=== PATIENT | male | born 1995 | race Caucasian/White ===

== ENCOUNTER 2018-04-23 12:54 | Emergency (ER) | payer SELFPAY ==
[2018-04-23 12:59] VITALS: BP 153/98
--- NOTE | 2018-04-23 13:02 | ER Report ---
History and Physical Time Seen By MD: 13:02 HPI/ROS CHIEF COMPLAINT: Headache HISTORY OF PRESENT ILLNESS: This is a 23-year-old male who presents to the emergency department for a headache. Patient was seen and evaluated at the [facility] today subsequently sent to the ED. Patient states over the last 2 weeks he's had blurred vision bilaterally, with last several days he's had a headache that has increased in intensity, has caused some nausea couple of episodes of vomiting. 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 Does have photophobia. Patient states he's also had some diarrhea recently, no blood in the emesis or diarrhea. No fevers or chest pain. No rashes. REVIEW OF SYSTEMS: Constitutional: No fever, no chills. Eyes: As above. ENT: No sore throat. Cardiovascular: No chest pain, no palpitations. Respiratory: No cough, no shortness of breath. Gastrointestinal: As above. Genitourinary: No hematuria. Musculoskeletal: No back pain. Skin: No rashes. Neurological: As above. Allergies: Coded Allergies: No Known Drug Allergies (Unverified , 04/23/18) Home Meds No Active Prescriptions or Reported Meds Past Medical/Surgical History The patient has a past medical and surgical history of wearing glasses. Reviewed Nurses Notes: Yes Constitutional Vital Sign - Last 24 Hours 04/23/18 12:59 Temp 97.9 Pulse 74 Resp 18 B/P (MAP) 153/98 Pulse Ox 96 O2 Delivery Room Air Physical Exam General Appearance: The patient is alert, has no immediate need for airway protection and no signs of toxicity. Eyes: Pupils equal and round no pallor or injection. EOMs intact. OD 20/40, OS 20/40, both eyes 20/30. ENT, Mouth: Mucous membranes are moist. Respiratory: There are no retractions, lungs are clear to auscultation. Cardiovascular: Regular rate and rhythm, no murmurs, clicks or rubs. Gastrointestinal: Abdomen is soft and non tender, no masses, bowel sounds normal. Neurological: Alert and oriented 4. Moving all extremities. Following all commands. No focal neuro deficits. Skin: Warm and dry, no rashes. Musculoskeletal: Neck is supple non tender. Extremities are nontender, nonswollen and have full range of motion. DIFFERENTIAL DIAGNOSIS: After history and physical exam differential diagnosis was considered for headache including but not limited to subarachnoid hemorrhage, migraine headache, tension headache and infectious causes such as meningitis, pharyngitis and sinusitis. Medical Decision Making Data Points Result Diagram: 04/23/18 1130 04/23/18 1130 Laboratory Hematology Test 04/23/18 11:30 Red Blood Count 5.48 M/uL (4.00-5.60) Mean Corpuscular Volume 91.1 fL (80.0-96.0) Mean Corpuscular Hemoglobin 30.9 pg (26.0-33.0) Mean Corpuscular Hemoglobin Concent 34.0 g/dL (32.0-36.0) Red Cell Distribution Width 13.4 % (11.5-14.5) Mean Platelet Volume 8.3 fL (7.2-11.1) Neutrophils (%) (Auto) 73.8 % (39.4-72.5) Lymphocytes (%) (Auto) 18.5 % (17.6-49.6) Monocytes (%) (Auto) 7.0 % (4.1-12.4) Eosinophils (%) (Auto) 0.1 % (0.4-6.7) Basophils (%) (Auto) 0.6 % (0.3-1.4) Nucleated RBC Relative Count (auto) 0.1 /100WBC Neutrophils # (Auto) 5.0 K/uL (2.0-7.4) Lymphocytes # (Auto) 1.2 K/uL (1.3-3.6) Monocytes # (Auto) 0.5 K/uL (0.3-1.0) Eosinophils # (Auto) 0.0 K/uL (0.0-0.5) Basophils # (Auto) 0.0 K/uL (0.0-0.1) Nucleated RBC Absolute Count (auto) 0.01 K/uL Sodium Level 139 mmol/L (137-145) Potassium Level 3.9 mmol/L (3.5-5.0) Chloride Level 101 mmol/L (98-107) Carbon Dioxide Level 26 mmol/L (22-30) Blood Urea Nitrogen 13 mg/dl (9-21) Creatinine 1.00 mg/dl (0.66-1.25) Glomerular Filtration Rate Calc > 60.0 Random Glucose 93 mg/dl (75-110) Calcium Level 9.4 mg/dl (8.4-10.2) Total Bilirubin 1.0 mg/dl (0.2-1.3) Aspartate Amino Transf (AST/SGOT) 20 U/L (0-35) Alanine Aminotransferase (ALT/SGPT) 31 U/L (0-56) Alkaline Phosphatase 41 U/L (0-126) Total Protein 7.8 g/dl (6.3-8.2) Albumin 4.4 g/dl (3.5-5.0) Chemistry Test 04/23/18 11:30 White Blood Count 6.7 k/uL (4.5-11.0) Red Blood Count 5.48 M/uL (4.00-5.60) Hemoglobin 16.9 g/dL (14.0-18.0) Hematocrit 49.9 % (42.0-52.0) Mean Corpuscular Volume 91.1 fL (80.0-96.0) Mean Corpuscular Hemoglobin 30.9 pg (26.0-33.0) Mean Corpuscular Hemoglobin Concent 34.0 g/dL (32.0-36.0) Red Cell Distribution Width 13.4 % (11.5-14.5) Platelet Count 252 K/uL (150-450) Mean Platelet Volume 8.3 fL (7.2-11.1) Neutrophils (%) (Auto) 73.8 % (39.4-72.5) Lymphocytes (%) (Auto) 18.5 % (17.6-49.6) Monocytes (%) (Auto) 7.0 % (4.1-12.4) Eosinophils (%) (Auto) 0.1 % (0.4-6.7) Basophils (%) (Auto) 0.6 % (0.3-1.4) Nucleated RBC Relative Count (auto) 0.1 /100WBC Neutrophils # (Auto) 5.0 K/uL (2.0-7.4) Lymphocytes # (Auto) 1.2 K/uL (1.3-3.6) Monocytes # (Auto) 0.5 K/uL (0.3-1.0) Eosinophils # (Auto) 0.0 K/uL (0.0-0.5) Basophils # (Auto) 0.0 K/uL (0.0-0.1) Nucleated RBC Absolute Count (auto) 0.01 K/uL Glomerular Filtration Rate Calc > 60.0 Calcium Level 9.4 mg/dl (8.4-10.2) Total Bilirubin 1.0 mg/dl (0.2-1.3) Aspartate Amino Transf (AST/SGOT) 20 U/L (0-35) Alanine Aminotransferase (ALT/SGPT) 31 U/L (0-56) Alkaline Phosphatase 41 U/L (0-126) Total Protein 7.8 g/dl (6.3-8.2) Albumin 4.4 g/dl (3.5-5.0) EKG/Imaging Imaging Location: [facility] [place] Patient: Zachariah Mistry : 1995 Visit/Account:[id number] Date of Sevice: 04/23/2018 EXAMINATION: Head CT without intravenous contrast HISTORY: Headache, visual changes x2 weeks TECHNIQUE: Contiguous axial images were obtained from the skull base to the vertex without intravenous contrast. Sagittal and coronal reformatted images are also submitted. Dose Lowering Technique One of the following dose optimization techniques was utilized in the performance of this exam: Automated exposure control; adjustment of the mA and/or kV according to the patient's size; or use of an iterative reconstruction technique. Specific details can be referenced in the facility's radiology CT exam operational policy. COMPARISON: None. FINDINGS: Brain volume: Normal. Ventricles: Normal. Acute ischemic changes: None. Hemorrhage: None. Masses / edema: None. Sofia-white: Negative. White matter: Normal. Vessels: Negative. Extra-axial: There are small calcified occasions within the pineal gland. Calvarium / scalp: Negative. Skull base / visualized face: Negative. Visualized sinuses / orbits: Negative. IMPRESSION: Normal noncontrast head CT without evidence of mass lesion, acute infarct or hemorrhage. Report Dictated By: Pretty Gómez MD at 04/23/2018 2:00 PM Report E-Signed By: Pretty Gómez MD at 04/23/2018 2:04 PM [email or web address] ED Course/Re-evaluation Clinical Indication for ER IV: Hydration, IV Access ED Course The patient was admitted to room. History and physical were obtained. Differential diagnoses were considered. An IV was started. A 1 L normal saline bolus was given, 30 mg IV Toradol. A CBC, CMP were obtained. Noncontrast CT of the brain was negative for any intracranial abnormalities. Lab studies unremarkable. I did review the results with the patient. I did tell the patient this could be a migraine type of headache, as far as the blurred vision concerne d and I did suggest following up with optometry today if possible, otherwise next week. I also told patient this could be secondary to his recent study habits, increased screen time and reading. Patient does feel better after the saline and Toradol. The patient expressed understanding, will follow-up with optometry. Patient will also return to the ER for any other concerns or worsening symptoms. Patient had no other questions or concerns at this time and discharged home. Decision to Disposition Date: Apr 23, 2018 Decision to Disposition Time: 14:17 Depart Departure Latest Vital Signs Vital Signs Date Time Temp Pulse Resp B/P (MAP) Pulse Ox O2 Delivery O2 Flow Rate FiO2 04/23/18 12:59 97.9 74 18 153/98 96 Room Air Impression: Primary Impression: Headache Additional Impressions: Blurred vision Photophobia, bilateral Condition: Improved Disposition: HOME OR SELF-CARE Referrals: [facility] OD 5 Days New Scripts No Active Prescriptions or Reported Meds Patient Instructions: Acute Headache (ED), Blurred Vision (ED), Photophobia (ED) Additional Instructions: There were no acute findings on your head CT today. Your blood work looks good. The headache could be a result of your intense studying and computer work over the last couple of weeks. I highly recommend following up with the Audio Visual Technician on your discharge paperwork, call today and see if they can squeeze you in otherwise next week. Drink plenty of water. Get plenty of rest. Be sure to have plenty of ambient lighting when you are studying. Return to the ED for eye pain, discharge or any other concerns you may have. Problem Qualifiers Primary Impression: Headache Headache type: unspecified Headache chronicity pattern: acute headache Intractability: not intractable Qualified Codes: R51 - Headache RIGO WARD PROJECT/PRODUCTION MANAGER IMAGING-BC Apr 23, 2018 13:02
[2018-04-23] MEDS ORDERED: NS(*) 0.9% 1000 ML BAG 1,000 ML IV ONE (13:15)
[2018-04-23 13:50] LABS: PLATELET COUNT, AUTOMATED 252 K/uL (150-450)
--- NOTE | 2018-04-23 14:08 | RADIOLOGY IMAGING REPORT ---
FACILITY: [facility] [place]IENT NAME: Zachariah Mistry : 1995 MR: [id number] V: [id number] EXAM DATE: ORDERING PHYSICIAN: RIGO WARD TECHNOLOGIST: Location: [facility] [place] Patient: Zachariah Mistry : 1995 Visit/Account:[id number] Date of Sevice: 04/23/2018 EXAMINATION: Head CT without intravenous contrast HISTORY: Headache, visual changes x2 weeks TECHNIQUE: Contiguous axial images were obtained from the skull base to the vertex without intraven ous contrast. Sagittal and coronal reformatted images are also submitted. Dose Lowering Technique One of the following dose optimization techniques was utilized in the performance of this exam: Autom ated exposure control; adjustment of the mA and/or kV according to the patient's size; or use of an i terative reconstruction technique. Specific details can be referenced in the facility's radiology C T exam operational policy. COMPARISON: None. FINDINGS: Brain volume: Normal. Ventricles: Normal. Acute ischemic changes: None. Hemorrhage: None. Masses / edema: None. Sofia-white: Negative. White matter: Normal. Vessels: Negative. Extra-axial: There are small calcified occasions within the pineal gland. Calvarium / scalp: Negative. Skull base / visualized face: Negative. Visualized sinuses / orbits: Negative. IMPRESSION: Normal noncontrast head CT without evidence of mass lesion, acute infarct or hemorrhage. Report Dictated By: Pretty Gómez MD at 04/23/2018 2:00 PM Report E-Signed By: Pretty Gómez MD at 04/23/2018 2:04 PM [email or web address]
[2018-04-23] MEDS ORDERED: KETOROLAC 30 MG/ML VIAL IVP ONE (14:10)
== END 2018-04-23 14:50 | disposition home or self-care (01) ==
LOC: ER 12:57
DX: R51 Headache (principal); H53.8 Other visual disturbances; H53.149 Visual discomfort, unspecified
CPT/HCPCS: 70450; 85025; 96361; 96374; 99284; J1885; J7030; 82040; 82247; 82310; 82374; 82435; 82565; 82947; 84075; 84132; 84155; 84295; 84450; 84460; 84520